=== PATIENT | female | born 1975 | race Caucasian/White ===

== ENCOUNTER → 2020-06-22 10:19 | Outpatient (BNVA) | payer OTHER, SELFPAY | PROVIDERS: PCP Internal Medicine; Referring Provider Internal Medicine; Visit Provider Orthopaedic Surgery | DX: M25.561 Pain in right knee (principal); M79.7 Fibromyalgia; M54.5 Low back pain; G89.29 Other chronic pain | CPT/HCPCS: 99212 ==

== ENCOUNTER 2021-04-10 16:36 | Emergency (ER) | payer OTHER, SELFPAY ==
--- NOTE | ~2021-04-10 | XR_ITS ---
EXAMINATION: MANDIBLE AND NASAL BONES. CLINICAL INFORMATION: Trauma. Pain. COMPARISON: None TECHNIQUE: Nasal bones 3 views. Mandible 5 views. FINDINGS: Mandible: There is there is normal symmetry of bilateral TM joints without subluxation or dislocation. No visible fracture seen involving the mandible. There are multiple root canals and dental fillings. The soft tissues are normal. NaSal bones: There is no visible fracture or bony abnormality involving the nasal bones. The soft tissue appears normal. XR/XR mandible <4V IMPRESSION: No visible fracture involving the mandible. The TM joints are symmetrical and normal.
--- NOTE | ~2021-04-10 | XR_ITS ---
EXAMINATION: MANDIBLE AND NASAL BONES. CLINICAL INFORMATION: Trauma. Pain. COMPARISON: None TECHNIQUE: Nasal bones 3 views. Mandible 5 views. FINDINGS: Mandible: There is there is normal symmetry of bilateral TM joints without subluxation or dislocation. No visible fracture seen involving the mandible. There are multiple root canals and dental fillings. The soft tissues are normal. NaSal bones: There is no visible fracture or bony abnormality involving the nasal bones. The soft tissue appears normal. XR/XR nasal bones min 3V IMPRESSION: No visible fracture involving the mandible. The TM joints are symmetrical and normal.
[2021-04-10 17:20] VITALS: BP 117/81; PULSE 81; RESP 18; TEMP 35.3; O2SAT 99; BMI 36.0
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
[2021-04-10 19:32] VITALS: BP 131/80; PULSE 64; RESP 16; TEMP 36.8; O2SAT 99
--- NOTE | 2021-04-10 20:00 | PC.NURSE ---
PT SEEN AND EVALUATED BY DR YU UPON ARRIVAL TO CHAIR. PT AWAKE, ALERT AND ORIENTED X 3. SKIN WARM AND DRY. RESP UNLABORED. AIRWAY PATENT. MANAGING SECRETIONS. SPEAKING IN FULL CLEAR SENTENCES.
== END 2021-04-10 20:46 | disposition home or self-care (01) ==
PROVIDERS: Emergency Provider Emergency Medicine; PCP Internal Medicine
DX: S00.83XA Contusion of other part of head, initial encounter (principal); W22.8XXA Striking against or struck by other objects, initial encounter; Y93.02 Activity, running; Y92.9 Unspecified place or not applicable; Y99.9 Unspecified external cause status
CPT/HCPCS: 70100; 70160; 99283

== ENCOUNTER 2021-04-18 11:23 | Emergency (ER) | payer OTHER, SELFPAY ==
--- NOTE | ~2021-04-18 | XR_ITS ---
EXAMINATION: XR CHEST CLINICAL INFORMATION: . Cough and headaches. COMPARISON: Chest x-ray 01/21/2018 TECHNIQUE: Frontal view of the chest was obtained. FINDINGS: Both lungs are fairly well-expanded with patchy linear density seen peripherally based right middle lobe suspicious for infiltrate. Rest of lungs are clear. The heart size and pulmonary vascularity is normal. No gross bony abnormality. XR/XR chest 1V IMPRESSION: Suspect early patchy infiltrate peripherally based right middle lobe/mid lung
[2021-04-18 11:35] VITALS: BP 100/58; PULSE 91; RESP 17; TEMP 37.1; O2SAT 93; BMI 33.5
--- NOTE | 2021-04-18 12:07 | ED.GENADULT ---
HPI - General Adult General Chief complaint: General Medical Stated complaint: FLU LIKE Time Seen by Provider: 04/18/21 11:51 History of Present Illness HPI narrative: Patient is a 46-year-old female presents today with coughing upper respiratory symptoms. She is not immunized for coronavirus. The whole family got COVID. Patient complaining of increasing coughing upper respiratory symptoms for the last 3 days. Positive generalized malaise achiness. No change in smell or taste. Presented to the emergency department for help. Patient from home. No history diabetes. Positive history of chronic pain. History of fibromyalgia. Related Data Home Medications Medication Instructions Recorded Confirmed clonazepam 1 mg tablet 1 mg PO BID PRN 05/24/20 06/22/20 cyclobenzaprine 5 mg tablet 5 mg PO TID PRN 05/24/20 06/22/20 lamotrigine 150 mg tablet 150 mg PO BID 05/24/20 06/22/20 olanzapine 20 mg tablet 20 mg PO BEDTIME 05/24/20 06/22/20 prazosin 2 mg capsule 2 mg PO BEDTIME 05/24/20 06/22/20 temazepam 15 mg capsule 15 mg PO BEDTIME 05/24/20 06/22/20 tizanidine 4 mg tablet 4 mg PO TID PRN 05/24/20 06/22/20 trazodone 150 mg tablet 150 mg PO BEDTIME 05/24/20 06/22/20 Previous Rx's Medication Instructions Recorded triamcinolone acetonide 0.5 % 1 applic TOPICAL BID 15 Days #15 g 05/24/20 topical cream acetaminophen 500 mg tablet 500 mg PO Q6H PRN 30 Days #120 tab 07/06/20 leg brace (Knee Support Brace) #1 ea 07/20/20 famotidine 40 mg tablet 40 mg PO BID PRN 30 Days #60 tab 09/14/20 tramadol 50 mg tablet See Rx Instructions .ROUTE 02/28/21 .COMPLEX 30 Days #240 tab albuterol sulfate 90 mcg/actuation 2 puff INHALATION Q6H PRN 30 Days 04/16/21 aerosol inhaler (ProAir HFA) #18 g Allergies Allergy/AdvReac Type Severity Reaction Status Date / Time Benadryl Allergy Severe anaphylaxis Verified 04/18/21 11:35 Iodinated Contrast Media Allergy Severe SWELLING Verified 04/18/21 11:35 [IV Dye, Iodine Containing Contrast ] SHELLFISH Allergy Severe SWELLING Verified 04/18/21 11:35 meperidine [From DEMEROL] Allergy Unknown JUST CANT Verified 04/18/21 11:35 PUT IT ON HER ? temazepam [Restoril] Allergy Unknown unknown Verified 04/18/21 11:35 hydroxyzine [From VISTARIL] AdvReac Intermediate TACHY Verified 04/18/21 11:35 [facility] Past Medical History Attestation statement: The following information was validated with the patient. Medical History Anxiety Bipolar depression Cervical spondylosis Fibromyalgia Insomnia Nickel allergy, current reaction Obesity (BMI 30-39.9) Right knee pain Right-sided face pain Spondylosis of thoracolumbar spine Vitiligo Surgical History History of section Family History Family History Father CVD (cardiovascular disease) Diabetes Mother Alive and well Social History Social History Alcohol intake: unknown Patient Tobacco Use Status: Tobacco use Unknown Use of substances other than those prescribed or required for medical reasons: Unknown Advance Directives: No Advance Directives Information Provided: No Patient : No Current occupational status: unemployed Current occupation: Right Handed Physical Exam Vital Signs: Vital Signs: Last Vital Signs Temp 98.7 F 04/18/21 11:35 Pulse 83 04/18/21 12:42 Resp 18 04/18/21 12:42 BP 100/58 L 04/18/21 11:35 Pulse Ox 95 04/18/21 12:42 Body Mass Index 33.5 Appearance: Alert. Oriented X3. No acute distress. Eyes: Pupils equal, round and reactive to light. ENT: Pharynx normal. Neck: Normal inspection. Neck supple. No lymph nodes noted. No crepitus CVS: Normal heart rate and rhythm. Pulses normal. Normal S1 and S2 Respiratory: No respiratory distress. Breath sounds normal. No Wheezing. No rales Abdomen: Soft and nontender. No rigidity. No distention. good BS x4 Skin: Skin warm and dry. Normal skin color. Normal skin turgor. Extremities: No lower extremity edema. Neurovascular intact to all extremities. No Lacerations. No Rash Neuro: Oriented X 3. No motor deficit. No sensory deficit. Moving all extermities. No slurred speech Ambulated patient in the emergency department. Patient's O2 sat actually increased to 96% on room air. Medical Decision Making MDM Narrative Medical decision making narrative: Patient's COVID test was positive. Likely the cause of patient's coughing upper respiratory symptoms patient's entire family infected. Patient not immunized. Ambulated well in the emergency department O2 sat was 96% on room air. Will discharge patient home. Nonspecific infiltrate noted on the x-ray likely related to COVID. Will discharge patient home. Told worsening condition return. Lab Data Labs: Lab Results 04/18/21 Range/Units 12:07 Coronavirus (PCR) POSITIVE A (Negative) Influenza Type A (PCR) NEGATIVE (Negative) Influenza Type B (PCR) NEGATIVE (Negative) RSV RNA Qual (PCR) NEGATIVE (Negative) Discharge Plan Discharge Clinical Impression: COVID-19 Patient Disposition: Home, Self-Care Instructions: COVID-19 (Coronavirus Disease 2019) (ED) Additional Instructions: Home quarantine advised. Worsening condition return to the emergency department. Please stay home quarantine until all symptom has resolved. No fever for at least 48 hours. Prescriptions: No Action acetaminophen 500 mg tablet 500 mg PO Q6H PRN (Reason: fever or pain) 30 Days Qty: 120 RF: 2 (DME) Knee Support Brace Misc See Rx Instructions .ROUTE .MEDSUPPLY Qty: 1 RF: 0 famotidine 40 mg tablet 40 mg PO BID PRN (Reason: abdominal pain) 30 Days Qty: 60 RF: 5 tramadol 50 mg tablet See Rx Instructions .ROUTE .COMPLEX 30 Days Qty: 240 RF: 0 albuterol sulfate [ProAir HFA] 90 mcg/actuation HFA aerosol inhaler 2 puff inhalation Q6H PRN (Reason: shortness of breath or wheezing) 30 Days Qty: 18 RF: 1 olanzapine 20 mg tablet 20 mg PO BEDTIME RF: 0 lamotrigine 150 mg tablet 150 mg PO BID RF: 0 prazosin 2 mg capsule 2 mg PO BEDTIME RF: 0 trazodone 150 mg tablet 150 mg PO BEDTIME RF: 0 clonazepam 1 mg tablet 1 mg PO BID PRNRF: 0 temazepam 15 mg capsule 15 mg PO BEDTIME RF: 0 cyclobenzaprine 5 mg tablet 5 mg PO TID PRNRF: 0 tizanidine 4 mg tablet 4 mg PO TID PRNRF: 0 triamcinolone acetonide 0.5 % cream 1 applic topical BID 15 Days Qty: 15 RF: 1 Referrals: Naseem Coburn MD [Primary Care Provider] - 2 days (Please stay quarantine at home until all symptom has resolved no fever for at least 48 hours.) Print Language: Hebrew
[2021-04-18 12:08] VITALS: PULSE 87; RESP 20; O2SAT 96
[2021-04-18 12:42] VITALS: PULSE 83; RESP 18; O2SAT 95
[2021-04-18 13:03] LABS: Influenza A PCR NEGATIVE (Negative); Influenza B PCR NEGATIVE (Negative); Resp Syncy Virus RNA Qual PCR NEGATIVE (Negative); SARS COV2 PCR INHOUSE POSITIVE (Negative)
== END 2021-04-18 13:49 | disposition home or self-care (01) ==
PROVIDERS: Emergency Provider Emergency Medicine Emergency Medical Services; PCP Internal Medicine
DX: U07.1 COVID-19 (principal); R05 Cough; Z79.899 Other long term (current) drug therapy
CPT/HCPCS: 0241U; 36415; 71045; 99283; 99284